=== PATIENT | female | born 1950 | race American Indian/Alaskan Native ===

== ENCOUNTER 2016-07-19 11:11 | Emergency (ER) | payer MEDICARE, OTHER ==
--- NOTE | 2016-07-19 12:22 | Emergency Department Report ---
Chief Complaint: Dyspnea/Respdistress Stated Complaint: SOB/RAPID HEART BEAT/NAUSEA Time Seen by Provider: 07/19/16 12:16 - HPI History of Present Illness: [id number] -[place] female comes in for short of breath headache or blurred vision. She states this began seeing floaters heart was racing and some nausea. She states that she feels much better now. Denies any pain at the present time. Patient recently started on lisinopril 2.5 mg last Friday. She did report that her blood pressure had come down to around 120s over 70s. He had no headache at that time. She has no other past medical history. - Exam Vital Signs: Vital Signs 07/19/16 12:05 Temperature 98.9 F Pulse Rate 114 H Respiratory 18 Rate Blood Pressure 155/94 O2 Sat by Pulse 100 Oximetry Physical Exam: Alert and oriented 3. Cardio: Tachycardic S1-S2 no murmurs Respiratory: Clear to auscultation bilateral MSE screening note: Focused history and physical exam performed. Due to findings the following was ordered: Appropriate labs were ordered for this patient. She'll be evaluated by the main ER doctors. ED Disposition for MSE Condition: Stable
[2016-07-19 12:49] LABS: Hematocrit 45.6 % (30.3-42.9); Hemoglobin 14.4 gm/dl (10.1-14.3); Mean Corpuscular HGB Conc 32 % (30-34); Mean Corpuscular Volume 80 fl (79-97); Platelet Count 271 K/mm3 (140-440); Red Blood Count 5.74 M/mm3 (3.65-5.03); Red Cell Distribution Width 15.2 % (13.2-15.2); White Blood Count 11.6 K/mm3 (4.5-11.0)
[2016-07-19 12:52] LABS: Mean Corpuscular Hemoglobin 25 pg (28-32)
[2016-07-19 13:09] LABS: Anion Gap 17 mmol/L; BUN/Creatinine Ratio 18.75; Blood Urea Nitrogen 15 mg/dL (7-17); Calcium 9.6 mg/dL (8.4-10.2); Carbon Dioxide 27 mmol/L (22-30); Chloride 98.7 mmol/L (98-107); Glucose 93 mg/dL (65-100); Potassium 4.3 mmol/L (3.6-5.0); Sodium 138 mmol/L (137-145)
[2016-07-19 15:31] LABS: Bilirubin,Urine NEG (Negative); Blood,Urine NEG (Negative); Ketones,Urine NEG (Negative); Leukocyte Esterase,Urine NEG (Negative); Nitrite,Urine NEG (Negative); Protein,Urine <15 mg/dL mg/dL (Negative); Urobilinogen,Urine < 2.0 mg/dL (<2.0)
[2016-07-19 20:21] VITALS: BP 132/86
--- NOTE | 2016-07-19 22:02 | Emergency Department Report ---
ED General Adult HPI - General Chief complaint: Dyspnea/Respdistress Stated complaint: SOB/RAPID HEART BEAT/NAUSEA Time Seen by Provider: 07/19/16 12:16 Source: patient Mode of arrival: Ambulatory Limitations: No Limitations - History of Present Illness Initial comments: 66-year-old female presents to the emergency department with multiple complaints. Patient states that at approximately 10 AM this morning she began having headache with blurry vision. Patient initially told the triage nurse that she was having palpitations and shortness of breath with some nausea. She denies the symptoms to me. Patient states she has had similar symptoms in the past when her blood pressure was elevated. At this time, the patient states that her symptoms have resolved. There are no other complaints. -: Sudden, This morning Time: 10:00 Location: head Radiation: non-radiation Severity scale (0 -10): 5 Quality: other (throbbing) Consistency: now resolved Improves with: none Worsens with: none Associated Symptoms: other (blurry vision) Treatments Prior to Arrival: none - Related Data Previous Rx's Medication Instructions Recorded Last Taken Type Ibuprofen [Motrin] 800 mg PO Q8HR PRN #15 tablet 02/17/16 Unknown Rx Allergies Allergy/AdvReac Type Severity Reaction Status Date / Time No Known Allergies Allergy Unverified 02/17/16 13:04 ED Review of Systems ROS: Stated complaint: SOB/RAPID HEART BEAT/NAUSEA Other details as noted in HPI Comment: All other systems reviewed and negative Eyes: vision change Neurological: headache ED Past Medical Hx - Past Medical History Previous Medical History?: Yes Hx Hypertension: Yes Additional medical history: spinal stenosis - Surgical History Past Surgical History?: Yes Additional Surgical History: x 2 - Family History Family history: no significant - Social History Smoking Status: Never Smoker Substance Use Type: None - Medications Home Medications: Home Medications Medication Instructions Recorded Confirmed Last Taken Type Ibuprofen [Motrin] 800 mg PO Q8HR PRN #15 tablet 02/17/16 Unknown Rx ED Physical Exam - General Limitations: No Limitations General appearance: alert, in no apparent distress - Head Head exam: Present: atraumatic, normocephalic - Eye Eye exam: Present: normal appearance, PERRL, EOMI - ENT ENT exam: Present: normal exam, normal orophraynx. Absent: mucous membranes moist - Neck Neck exam: Present: normal inspection, full ROM. Absent: tenderness - Respiratory Respiratory exam: Present: normal lung sounds bilaterally. Absent: respiratory distress - Cardiovascular Cardiovascular Exam: Present: regular rate, normal rhythm, normal heart sounds - GI/Abdominal GI/Abdominal exam: Present: soft, normal bowel sounds. Absent: distended, tenderness - Extremities Exam Extremities exam: Present: normal inspection, full ROM. Absent: tenderness - Back Exam Back exam: Present: normal inspection, full ROM. Absent: tenderness - Neurological Exam Neurological exam: Present: alert, oriented X3. Absent: motor sensory deficit - Skin Skin exam: Present: warm, dry, intact ED Course Vital Signs 07/19/16 07/19/16 07/19/16 12:05 20:05 20:20 Temperature 98.9 F Pulse Rate 114 H 105 H 98 H Respiratory 18 Rate Blood Pressure 155/94 Blood Pressure 161/88 132/86 [Left] O2 Sat by Pulse 100 100 Oximetry ED Medical Decision Making - Lab Data Result diagrams: 07/19/16 12:43 07/19/16 12:43 - EKG Data -: EKG Interpreted by [facility] EKG shows normal: sinus rhythm, axis, intervals, QRS complexes, ST-T waves Rate: tachycardia - EKG Data When compared to previous EKG there are: previous EKG unavailable Interpretation: normal EKG - Medical Decision Making Lab results reviewed and discussed with the patient. Patient has remained asymptomatic in the emergency department. Patient will be discharged home at this time to follow up with her primary care physician. - Differential Diagnosis headache, hypertension Critical care attestation.: If time is entered above; I have spent that time in minutes in the direct care of this critically ill patient, excluding procedure time. ED Disposition Clinical Impression: Essential hypertension Disposition: DISCHARGED TO HOME OR SELFCARE Is pt being admited?: No Condition: Stable Instructions: Hypertension (ED) Referrals: RADHA ELDRIDGE MD [Staff Physician] - 3-5 Days Time of Disposition: 22:02
== END 2016-07-19 22:36 | disposition home or self-care (01) ==
LOC: ED 11:11
DX: I10 Essential (primary) hypertension (principal)
CPT/HCPCS: 36415; 80048; 81001; 85027; 93005; 93010